=== PATIENT | female | born 1955 | race Hispanic/Latino ===

== ENCOUNTER → 2021-07-29 | Outpatient (CLI) | payer OTHER | END | disposition home or self-care (01) | LOC: OIH 13:53 | PROVIDERS: ATTEND Internal Medicine | DX: M19.042 Primary osteoarthritis, left hand (principal); M19.041 Primary osteoarthritis, right hand ==

== ENCOUNTER → 2022-06-11 | Outpatient (CLI) | payer MEDICARE | END | disposition home or self-care (01) | LOC: RAH 13:37 | PROVIDERS: ATTEND Physical Medicine & Rehabilitation | DX: M47.812 Spondylosis without myelopathy or radiculopathy, cervical region (principal); M48.02 Spinal stenosis, cervical region; M54.2 Cervicalgia | CPT/HCPCS: 72141 ==

== ENCOUNTER → 2025-05-29 | Outpatient (CLI) | payer MEDICARE ==
--- NOTE | 2025-05-29 11:36 | HMCIMG ---
EXAM: CR Cervical spine, 5 View. Includes flexion and extension views. CLINICAL HISTORY: CERVICALGIA, SEGMENTAL AND SOMATIC DYSFUNCTION OF CERVICAL REGION COMPARISON: None provided. MRI cervical spine 06/11/2022. No prior report available. FINDINGS: BONES: Straightening of the expected lordotic curvature. No acute fracture or aggressive appearing osseous lesion. Vertebral body heights appear satisfactorily maintained and stable since previous exam. Anterior marginal spurring off the inferior endplates of C3, C4, and C5. DISCS/DEGENERATIVE CHANGES: Degenerative disc space narrowing most notable at C4-5 and C5-6 levels. Posterior vertebral body alignment is within normal limits. Grade 1 retrolisthesis of C5 over C6 of approximately 1 or 2 mm. With extension there is enhancement of the retrolisthesis of C5 over C6 up to approximately 3 or 4 mm. SOFT TISSUES: No prevertebral soft tissue swelling. The visualized lung apices are clear. IMPRESSION: No fracture or acute osseous abnormality of the cervical spine. Moderate cervical spondylosis. Straightened cervical curvature. May reflect paraspinal muscular spasm. Grade 1 retrolisthesis C5 over C6 with increased dynamic instability on extension as described above. If there are concerns for cervical radiculopathy, MRI exam may be useful for more complete evaluation. /[place]
== END | disposition home or self-care (01) ==
LOC: RAH 09:48
PROVIDERS: ATTEND Physical Medicine & Rehabilitation
DX: M47.812 Spondylosis without myelopathy or radiculopathy, cervical region (principal); M43.12 Spondylolisthesis, cervical region; M48.02 Spinal stenosis, cervical region; M99.01 Segmental and somatic dysfunction of cervical region; M54.2 Cervicalgia
CPT/HCPCS: 72050